=== PATIENT | male | born 1980 | race Caucasian/White ===

== ENCOUNTER → 2021-04-04 | Outpatient (CLI) | payer SELFPAY ==
--- NOTE | 2021-04-04 11:38 | Diagnostic Imaging Report ---
INDICATION: Right forearm pain. TIME OF EXAM: 10:27 a.m. TECHNIQUE: Three views of the right forearm were obtained. FINDINGS: Alignment at the wrist and elbow appears normal. Radius and ulna are intact. There appears to be an enthesophyte at the olecranon. IMPRESSION: No acute bony abnormality is detected. Dictated by: Dictated on workstation # [id number]
== END ==
LOC: RAD FS 10:17
PROVIDERS: ATTEND Nurse Practitioner
DX: M79.601 Pain in right arm (principal)
CPT/HCPCS: 73090

== ENCOUNTER 2022-08-27 00:02 | Emergency (ER) | payer SELFPAY ==
[~2022-08-27] VITALS: Ht 185 cm; Wt 90.7 kg
[2022-08-27 00:11] VITALS: BP 127/85
--- NOTE | 2022-08-27 01:18 | ED General ---
General Stated Complaint: ANXIETY Source of Information: Patient History of Present Illness Date Seen by Provider: Aug 27, 2022 Time Seen by Provider: 00:50 Physical Exam Vital Signs Capillary Refill : Height, Weight, BMI Height: '" Weight: lbs. oz. kg; BMI Method: Progress/Results/Core Measures Suspected Sepsis SIRS Temperature: Pulse: Respiratory Rate: Blood Pressure / Mean: Results/Orders Vital Signs/I&O Capillary Refill : Departure Impression Primary Impression: Left against medical advice Disposition: 07 AGAINST MEDICAL ADVICE Condition: Against Medical Advice Departure-Patient Inst. Referrals: [facility] (PCP/Family) Primary Care Physician NICOLA ZAMORANO DO Aug 27, 2022 01:18
== END 2022-08-27 00:55 | disposition left against medical advice (07) ==
LOC: EDUNIT# 00:02 → ER 00:05
DX: F41.9 Anxiety disorder, unspecified (principal)
CPT/HCPCS: 99281

== ENCOUNTER 2023-02-22 07:00 | Emergency (ER) | payer SELFPAY ==
[~2023-02-22] VITALS: Ht 188 cm; Wt 115.0 kg
[2023-02-22 07:57] LABS: BASOPHILS # (AUTO) 0.1 10^3/uL (0.0-0.1); BASOPHILS % (AUTO) 1 % (0-10); EOSINOPHILS # (AUTO) 0.1 10^3/uL (0.0-0.3); EOSINOPHILS % (AUTO) 2 % (0-10); HEMATOCRIT 47 % (40-54); HEMOGLOBIN 15.2 g/dL (13.3-17.7); LYMPHOCYTES # (AUTO) 1.7 10^3/uL (1.0-4.0); LYMPHOCYTES % (AUTO) 28 % (12-44); MEAN CORPUSCULAR HEMOGLOBIN 28 pg (25-34); MEAN CORPUSCULAR HGB CONC 33 g/dL (32-36); MEAN CORPUSCULAR VOLUME 87 fL (80-99); MEAN PLATELET VOLUME 10.4 fL (9.0-12.2); MONOCYTES # (AUTO) 0.5 10^3/uL (0.0-1.0); MONOCYTES % (AUTO) 8 % (0-12); NEUTROPHILS # (AUTO) 3.6 10^3/uL (1.8-7.8); NEUTROPHILS % (AUTO) 61 % (42-75); PLATELET COUNT 334 10^3/uL (130-400); WHITE BLOOD COUNT 5.9 10^3/uL (4.3-11.0)
[2023-02-22 08:05] LABS: ALBUMIN 3.8 GM/DL (3.2-4.5); CHLORIDE 105 MMOL/L (98-107); POTASSIUM 3.7 MMOL/L (3.6-5.0); SODIUM 139 MMOL/L (135-145)
[2023-02-22 08:06] LABS: CALCIUM 9.1 MG/DL (8.5-10.1)
[2023-02-22 08:08] LABS: GLUCOSE 95 MG/DL (70-105); TOTAL PROTEIN 7.1 GM/DL (6.4-8.2)
[2023-02-22 08:09] LABS: BILIRUBIN,TOTAL 0.4 MG/DL (0.1-1.0); CARBON DIOXIDE 27 MMOL/L (21-32)
[2023-02-22 08:11] LABS: ALKALINE PHOSPHATASE 55 U/L (40-136); CREATININE SERUM 0.81 MG/DL (0.60-1.30); GFR ESTIMATED 111
[2023-02-22 08:12] LABS: BUN/CREATININE RATIO 9
[2023-02-22 08:14] LABS: ALANINE AMINOTRANSFERASE 16 U/L (0-55); MAGNESIUM 2.3 MG/DL (1.6-2.4)
[2023-02-22 08:31] LABS: ERYTHROCYTE SEDIMENTATION RATE 2 MM/HR (0-15)
[2023-02-22 08:34] LABS: TSH (THYROID ANALYZER) 1.46 UIU/ML (0.35-4.94)
[2023-02-22 08:49] LABS: AMPHETAMINE SCREEN, URINE POSITIVE (NEGATIVE); BARBITURATE SCREEN URINE NEGATIVE (NEGATIVE); CANNABINOID SCREEN, URINE POSITIVE (NEGATIVE); COCAINE SCREEN URINE NEGATIVE (NEGATIVE); METHADONE STAT NEGATIVE (NEGATIVE); OPIATE SCREEN URINE NEGATIVE (NEGATIVE); OXYCODONE STAT NEGATIVE (NEGATIVE); TRICYCLIC ANTIDEPRESSANTS SCRE NEGATIVE (NEGATIVE)
--- NOTE | 2023-02-22 09:24 | Diagnostic Imaging Report ---
PROCEDURE: CT head and CT cervical spine without contrast. TECHNIQUE: Multiple contiguous axial images were obtained through the brain and cervical spine without the use of intravenous contrast. Sagittal and coronal reformations through the cervical spine were then performed. Auto Exposure Controls were utilized during the CT exam to meet ALARA standards for radiation dose reduction. INDICATION: Left-sided weakness. Hearing loss. Disequilibrium. COMPARISON: None FINDINGS: CT head: Ventricles and cortical sulci are normal in size and contour. There is no midline shift or mass-effect. No acute intra-axial hemorrhage is seen. There are no abnormal areas of increased or decreased density to suggest acute hemorrhage or edema. No extra-axial masses or collections are present. The bony calvarium is intact. The visualized paranasal sinuses shows mild scattered mucosal thickening. The mastoid air cells show near-complete opacification on the right. Minimal mastoid effusion is also noted on the left. CT cervical spine: Static alignment of the cervical spine is maintained. There is no significant anteroretrolisthesis. There is no evidence of jumped facets. Vertebral body heights are maintained. There is no acute fracture. No bony fragments are seen within the spinal canal. There is no significant osseous spinal canal stenosis. Pre and paravertebral soft tissue structures are unremarkable. Included portions of the lung apices are clear. Moderate bilateral molar dental caries are noted. IMPRESSION: 1. No acute intracranial abnormality. No CT evidence of mass, acute infarct or intracranial hemorrhage. 2. No acute fracture or dislocation of the cervical spine. 3. Bilateral mastoid effusions, right greater than left. In the correct clinical setting, findings can be seen as a sequela of mastoiditis. Dictated by: Dictated on workstation # [id number]
--- NOTE | 2023-02-22 09:34 | ED General ---
General Chief Complaint: Ear Problems Stated Complaint: VERTIGO,ANXIETY,CAN'T HEAR OUT OF BOTH EARS Nursing Triage Note: PT STATES HE HASN'T BEEN ABLE TO HEAR OUT OF RT EAR FOR A MONTH, LT EAR IS NOT WORKING WELL EITHER, HAS BEEN TO THE DR A FEW TIMES AND GIVEN DROPS, NOT WORKING, HAS ANXIETY AND THIS MAKES IT WORSE, VISION PROBLEMS AT NIGHT, VERY TIRED AND HAS SLEPT MORE THAN NORMAL Source of Information: Patient Exam Limitations: No Limitations History of Present Illness Date Seen by Provider: Feb 22, 2023 Time Seen by Provider: 07:15 Initial Comments This 42-year-old man presents to the emergency room by private vehicle with concerns about a constellation of unusual symptoms that for started in December. He reports nearly complete hearing loss in the right ear and significant hearing loss in the left ear. He reports vision change in the left eye including cloudy vision and fragmentation of imaging. He states this is worst at night. He sometimes sees multiple images of the same object. For example, when looking at the levi at night, he will see 6 images of the median with his left eye. Right eye appears normal. These vision changes only occur with the left eye. He does not have diplopia with binocular vision. He also reports disequilibrium. He is no longer able to read out of the left eye. He has subtle weakness of the left upper extremity and left leg. 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 He complains of a general sensation of tendons and muscles tightening up. He sometimes feels like his left leg is going to give out. He often feels clumsy. 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 He has prior medical history depression and anxiety. He takes propranolol, hydroxyzine, Lexapro, and Abilify. He sees Keely Rivera at [facility]. Psychosocial factors include increased stress recently. He has had some legal problems relating to real estate and his ex-girlfriend. He also admits to marijuana use but denies any other alcohol or drug use. He has been to the outpatient clinic twice and was prescribed Flonase. This has not seemed to help. He denies any significant pain such as headache or earache. He has not yet been to an eye doctor for this problem but has been to [facility] in the past. After urine drug screen, patient later admitted to intermittent methamphetamine use. Allergies and Home Medications Allergies Coded Allergies: No Allergy Information Available (Unverified , 02/22/23) Patient Home Medication List Home Medication List Reviewed: Yes Doxycycline Hyclate (Doxycycline Hyclate) 100 Mg Tablet, 100 MG PO BID Prescribed by: KENTON FERMIN on 02/22/231715 Prednisone (Prednisone) 20 Mg Tab, 40 MG PO DAILY Prescribed by: KENTON FERMIN on 02/22/231715 Review of Systems Review of Systems Constitutional: no symptoms reported EENTM: see HPI Respiratory: no symptoms reported Cardiovascular: no symptoms reported Gastrointestinal: no symptoms reported Genitourinary: no symptoms reported Musculoskeletal: see HPI Skin: no symptoms reported Psychiatric/Neurological: See HPI Hematologic/Lymphatic: No Symptoms Reported Immunological/Allergic: no symptoms reported Past Ljmvuhf-Cvxhiv-Zztwau Hx Patient Social History Tobacco Use?: No Substance use?: Yes Substance type: Marijuana Alcohol Use?: No Immunizations Up To Date First/Initial COVID19 Vaccinat: unk Second COVID19 Vaccination Fahad: YES Past Medical History Surgery/Hospitalization HX: ANXIETY, DEPRESSION Surgeries: No Respiratory: No Cardiac: No Neurological: No Genitourinary: No Gastrointestinal: No Musculoskeletal: No Endocrine: No Cancer: No Psychosocial: Yes ADD/ADHD, Anxiety, Depression Integumentary: No Physical Exam Vital Signs Vital Signs - First Documented 02/22/23 07:09 Temp 36.3 Pulse 55 Resp 18 B/P (MAP) 117/77 (90) Pulse Ox 98 O2 Delivery Room Air Capillary Refill : Height, Weight, BMI Height: '" Weight: lbs. oz. kg; 32.00 BMI Method: General Appearance: WD/WN, Anxious (tearful) HEENT: PERRL/EOMI, Normal ENT Inspection, Pharynx Normal, TM Abnormal (L) (Narrow canal. Greenish effusion layered inferriorly along the inferior TM. ), TM Abnormal (R) (Narrowed canal. TM slightly cloudy. Otherwise unremarkable), Other (left lens appears cloudy with greatly decreased red reflex. Mild light sensitivity noted. No inflammatory changes. Pupilary reflex intact. ) Neck: Normal Inspection Respiratory: Lungs Clear, Normal Breath Sounds, No Accessory Muscle Use Cardiovascular: Regular Rate, Rhythm, No Edema, No Murmur Gastrointestinal: Normal Bowel Sounds, Non Tender, Soft Extremity: Normal Inspection, No Pedal Edema Neurologic/Psychiatric: Alert, Oriented x3, Normal Mood/Affect, medical observer II-XII Norm as Tested, Motor Weakness (slight weakness detected in LUE vicn LLE. Poolroom Table Attendant slightly weaker on left. ), Other (Normal gait. Normal finger to nose and heel to bradley. ) Skin: Normal Color, Warm/Dry Progress/Results/Core Measures Suspected Sepsis SIRS Temperature: Pulse: 55 Respiratory Rate: 18 Laboratory Tests 02/22/23 07:50: White Blood Count 5.9 Blood Pressure 117 /77 Mean: 90 Laboratory Tests 02/22/23 07:50: Creatinine 0.81, Platelet Count 334, Total Bilirubin 0.4 Results/Orders Lab Results Laboratory Tests Test 02/22/23 07:50 02/22/23 08:21 02/22/23 17:05 Range/Units White Blood Count 5.9 4.3-11.0 10^3/uL Red Blood Count 5.39 4.30-5.52 10^6/uL Hemoglobin 15.2 13.3-17.7 g/dL Hematocrit 47 40-54 % Mean Corpuscular Volume 87 80-99 fL Mean Corpuscular Hemoglobin 28 25-34 pg Mean Corpuscular Hemoglobin Concent 33 32-36 g/dL Red Cell Distribution Width 13.3 10.0-14.5 % Platelet Count 334 130-400 10^3/uL Mean Platelet Volume 10.4 9.0-12.2 fL Immature Granulocyte % (Auto) 1 % Neutrophils (%) (Auto) 61 42-75 % Lymphocytes (%) (Auto) 28 12-44 % Monocytes (%) (Auto) 8 0-12 % Eosinophils (%) (Auto) 2 0-10 % Basophils (%) (Auto) 1 0-10 % Neutrophils # (Auto) 3.6 1.8-7.8 10^3/uL Lymphocytes # (Auto) 1.7 1.0-4.0 10^3/uL Monocytes # (Auto) 0.5 0.0-1.0 10^3/uL Eosinophils # (Auto) 0.1 0.0-0.3 10^3/uL Basophils # (Auto) 0.1 0.0-0.1 10^3/uL Immature Granulocyte # (Auto) 0.0 0.0-0.1 10^3/uL Erythrocyte Sedimentation Rate 2 0-15 MM/HR Sodium Level 139 135-145 MMOL/L Potassium Level 3.7 3.6-5.0 MMOL/L Chloride Level 105 98-107 MMOL/L Carbon Dioxide Level 27 21-32 MMOL/L Anion Gap 7 5-14 MMOL/L Blood Urea Nitrogen 7 7-18 MG/DL Creatinine 0.81 0.60-1.30 MG/DL Estimat Glomerular Filtration Rate 111 BUN/Creatinine Ratio 9 Glucose Level 95 70-105 MG/DL Calcium Level 9.1 8.5-10.1 MG/DL Corrected Calcium 9.3 8.5-10.1 MG/DL Magnesium Level 2.3 1.6-2.4 MG/DL Total Bilirubin 0.4 0.1-1.0 MG/DL Aspartate Amino Transf (AST/SGOT) 18 5-34 U/L Alanine Aminotransferase (ALT/SGPT) 16 0-55 U/L Alkaline Phosphatase 55 40-136 U/L C-Reactive Protein High Sensitivity 0.21 0.00-0.50 MG/DL Total Protein 7.1 6.4-8.2 GM/DL Albumin 3.8 3.2-4.5 GM/DL TSH [place]verse Testing 1.46 0.35-4.94 UIU/ML Serum Alcohol < 10 <10 MG/DL Syphilis Serology Non-Reactive Non-Reactive Urine Opiates Screen NEGATIVE NEGATIVE Urine Oxycodone Screen NEGATIVE NEGATIVE Urine Methadone Screen NEGATIVE NEGATIVE Urine Barbiturates Screen NEGATIVE NEGATIVE Ur Tricyclic Antidepressants Screen NEGATIVE NEGATIVE Urine Phencyclidine Screen NEGATIVE NEGATIVE Urine Amphetamines Screen POSITIVE H NEGATIVE Urine Methamphetamines Screen POSITIVE H NEGATIVE Urine Benzodiazepines Screen NEGATIVE NEGATIVE Urine Cocaine Screen NEGATIVE NEGATIVE Urine Cannabinoids Screen POSITIVE H NEGATIVE HIV (1&2) Ag and Ab Screen Referral Non-Reactive Non-Reactive My Orders Orders - KENTON WILEY MD Ed Iv/Invasive Line Start (02/22/23 07:40) Alcohol (02/22/23 07:40) Cbc And Automated Diff (02/22/23 07:40) Comprehensive Metabolic Panel (02/22/23 07:40) Hs C Reactive Protein (02/22/23 07:40) Drug Screen Stat (Urine) (02/22/23 07:40) Magnesium (02/22/23 07:40) Thyroid Analyzer (02/22/23 07:40) Erythrocyte Sedimentation Rate (02/22/23 07:40) Ct Head/Cervical Spine Wo (02/22/23 08:49) Ct Angio Head/Neck (02/22/23 09:34) Iohexol Injection (Omnipaque 350 Mg/Ml 1 (02/22/23 10:15) Received Contrast (Hold Metformin- Contr (02/22/23 10:15) Ns (Ivpb) 100 Ml (Sodium Chloride 0.9% 1 (02/22/23 10:15) Mri Brain W/O Contrast (02/22/23 12:51) Mri Cervical Spine W/O Contras (02/22/23 12:54) Lorazepam Injection (Lorazepam Injection (02/22/23 13:30) Syphilis Antibody Screen (02/22/23 15:50) Tick Panel With Lyme Eia (02/22/23 16:35) Hiv 1/2 Antibody (02/22/23 16:35) Medications Given in ED Vital Signs/I&O 02/22/23 02/22/23 07:09 17:28 Temp 36.3 36.3 Pulse 55 73 Resp 18 18 B/P (MAP) 117/77 (90) 130/86 Pulse Ox 98 98 O2 Delivery Room Air Room Air Capillary Refill : Blood Pressure Mean: 90 Diagnostic Imaging Diagonstic Imaging: CT Plain Films/CT/US/NM/MRI: c-spine, head Comments NAME: JAIRO RODRIGUEZ [facility] REC#: [id number] PT STATUS: REG ER : 1980 PHYSICIAN: KENTON WILEY MD ADMIT DATE: 02/22/23/ER Signed Date of Exam:02/22/23 CT HEAD/CERVICAL SPINE WO PROCEDURE: CT head and CT cervical spine without contrast. TECHNIQUE: Multiple contiguous axial images were obtained through the brain and cervical spine without the use of intravenous contrast. Sagittal and coronal reformations through the cervical spine were then performed. Auto Exposure Controls were utilized during the CT exam to meet ALARA standards for radiation dose reduction. INDICATION: Left-sided weakness. Hearing loss. Disequilibrium. COMPARISON: None FINDINGS: CT head: Ventricles and cortical sulci are normal in size and contour. There is no midline shift or mass-effect. No acute intra-axial hemorrhage is seen. There are no abnormal areas of increased or decreased density to suggest acute hemorrhage or edema. No extra-axial masses or collections are present. The bony calvarium is intact. The visualized paranasal sinuses shows mild scattered mucosal thickening. The mastoid air cells show near-complete opacification on the right. Minimal mastoid effusion is also noted on the left. CT cervical spine: Static alignment of the cervical spine is maintained. There is no significant anteroretrolisthesis. There is no evidence of jumped facets. Vertebral body heights are maintained. There is no acute fracture. No bony fragments are seen within the spinal canal. There is no significant osseous spinal canal stenosis. Pre and paravertebral soft tissue structures are unremarkable. Included portions of the lung apices are clear. Moderate bilateral molar dental caries are noted. IMPRESSION: 1. No acute intracranial abnormality. No CT evidence of mass, acute infarct or intracranial hemorrhage. 2. No acute fracture or dislocation of the cervical spine. 3. Bilateral mastoid effusions, right greater than left. In the correct clinical setting, findings can be seen as a sequela of mastoiditis. Dictated by: Dictated on workstation # [id number] Dict: 02/22/23 0916 Trans: 02/22/231645 [facility] [id number] Interpreted by: LESTER NOBLE MD Electronically signed by: LESTER NOBLE MD 02/22/23 1646 Diagonstic Imaging: CT Plain Films/CT/US/NM/MRI: other (angiogram head and neck) Comments NAME: JAIRO RODRIGUEZ [facility] REC#: [id number] PT STATUS: REG ER : 1980 PHYSICIAN: KENTON WILEY MD ADMIT DATE: 02/22/23/ER Signed Date of Exam:02/22/23 CT ANGIO HEAD/NECK PROCEDURE: CT angiography of the head and CT angiography of the neck with and without contrast. TECHNIQUE: Contiguous noncontrast images were obtained from the skull base through the vertex. After intravenous contrast administration, helical CT angiography of the neck was performed. Source data was reformatted into 3D MIP projections. Delayed post contrast acquisition was also obtained. Auto Exposure Controls were utilized during the CT exam to meet ALARA standards for radiation dose reduction. INDICATION: Left-sided weakness. Disequilibrium. Hearing loss. COMPARISON: CT head performed the same date. FINDINGS: CTA Neck: The visualized portions of the aortic arch demonstrate no evidence of aneurysm or dissection. There is conventional branching pattern of the great vessels of the aorta. The brachiocephalic artery is normal in course and caliber. The right and left common carotid origins are unremarkable. The origin of the left subclavian artery is patent. The common carotid arteries and internal carotid arteries demonstrate a normal course. No stenosis or dissection in the carotid systems. The external carotid arteries are patent and unremarkable. The left vertebral artery is dominant. The origin of the right vertebral artery is seen and is unremarkable. The origin of the left vertebral artery is seen and is unremarkable. There is no focal stenosis seen within the neck. There is no dissection. The vertebral arteries are well visualized to up to the level of the basilar artery. The osseous structures of the cervical spine are unremarkable. Included views through the lung apices demonstrate no focal consolidation. CTA brain: No stenosis or aneurysm in the intracranial portion of the bilateral ICA. No stenosis is seen in the bilateral anterior, middle, and posterior cerebral arteries. No evidence of aneurysm the [place]. In the posterior circulation, both of the vertebral arteries demonstrate normal opacification. Both the right and left PICA arteries are identified. The basilar artery is normal in course and caliber. The terminal branch vessels including the superior cerebellar arteries unremarkable. IMPRESSION: 1. No stenosis or aneurysm in the [place]. No large vessel occlusion. 2. No stenosis or dissection the bilateral carotid and vertebral arteries. Dictated by: Dictated on workstation # [id number] Dict: 02/22/23 1053 Trans: 02/22/23 1107 [id number] Interpreted by: NII JACKSON DO Electronically signed by: NII JACKSON DO 02/22/23 1107 Diagonstic Imaging: MRI Plain Films/CT/US/NM/MRI: head Comments NAME: JAIRO RODRIGUEZ [facility] REC#: [id number] PT STATUS: REG ER : 1980 PHYSICIAN: KENTON WILEY MD ADMIT DATE: 02/22/23/ER Signed Date of Exam:02/22/23 MRI BRAIN W/O CONTRAST PROCEDURE: MR imaging of the brain without contrast. TECHNIQUE: Multiplanar, multisequence MR imaging of the brain was performed without contrast. INDICATION: Left-sided weakness. Left vision changes. Hearing loss. COMPARISON: CTA head and neck of 02/22/2023. FINDINGS: Minimal nonspecific T2 hyperintensities in the supratentorial white matter are age appropriate. No other abnormal intracranial signal. No restricted water diffusion. No hemosiderin deposition or evidence of intracranial hemorrhage. Normal morphology including the major midline structures, sella, posterior fossa and cerebellopontine angle. Normal intracranial flow voids. No hydrocephalus or extra-axial fluid collections. The orbits are unremarkable. Mild mucosal thickening in the floor of the maxillary sinuses. Large right and small left mastoid effusion. Normal bone marrow signal. Multiple foci of restricted water diffusion in the parotid glands, the largest on the right measures up to 0.9 cm. IMPRESSION: 1. No acute intracranial MRI findings. No evidence of acute infarction or hemorrhage. 2. Bilateral mastoid effusions, greater on the right. These are nonspecific. There is no associated osteitis or coalescence on the comparison CT exams. 3. Mild mucosal thickening in the floor of the maxillary sinuses is stable. 4. Multiple foci of restricted water diffusion in the bilateral parotid glands, right greater than left. This is most likely a benign process. The morphology of these lesions on the comparison CTA exam is most consistent with lymph nodes. Recommend nonemergent follow-up with dedicated facial MRI without and with IV contrast. Dictated by: Dictated on workstation # [id number] Dict: 02/22/23 1409 Trans: 02/22/23 1647 [id number] Interpreted by: ERIBERTO MEREDITH MD Electronically signed by: ERIBERTO MEREDITH MD 02/22/23 1647 Diagonstic Imaging: MRI Plain Films/CT/US/NM/MRI: c-spine Comments NAME: JAIRO RODRIGUEZ [facility] REC#: [id number] PT STATUS: REG ER : 1980 PHYSICIAN: KENTON WILEY MD ADMIT DATE: 02/22/23/ER Signed Date of Exam:02/22/23 MRI CERVICAL SPINE W/O CONTRAS PROCEDURE: MR imaging cervical spine without contrast. TECHNIQUE: Multiplanar, multisequence MR imaging of the cervical spine was performed without contrast. INDICATION: Left-sided weakness. Hearing loss. Left vision changes. COMPARISON: None. FINDINGS: Normal alignment. Vertebral body heights are preserved. Normal bone marrow signal. No abnormal signal in the cervical spinal cord. Visualized paravertebral soft tissues are unremarkable. C2-C3: Normal. C3-C4: Uncovertebral joint hypertrophy results in severe right and moderate left neural foraminal narrowing. No spinal canal narrowing. C4-C5: Uncovertebral joint hypertrophy results in moderate right and mild left neural foraminal narrowing. No spinal canal narrowing. C5-C6: Uncovertebral and facet arthropathy result in eyhwfzgn-uc-[id number] right and moderate left neural foraminal narrowing. No spinal canal narrowing. C6-C7: No spinal canal narrowing. Uncovertebral and facet arthropathy result in moderate left neural foraminal narrowing. C7-T1: No spinal canal or neural foraminal narrowing. IMPRESSION: 1. No acute MRI findings in the cervical spine. 2. No abnormal signal in the cervical spinal cord. 3. 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 No high-grade spinal canal stenosis. Dictated by: Dictated on workstation # [id number] Dict: 02/22/23 1425 Trans: 02/22/23 1647 [id number] Interpreted by: ERIBERTO MEREDITH MD Electronically signed by: ERIBERTO MEREDITH MD 02/22/23 1647 Departure Impression Primary Impression: Left-sided weakness Additional Impressions: Hearing loss Qualified Codes: H91.93 - Unspecified hearing loss, bilateral Left otitis media Qualified Codes: H66.42 - Suppurative otitis media, unspecified, left ear Mastoid disorder Qualified Codes: H74.93 - Unspecified disorder of middle ear and mastoid, bilateral Vision loss, left eye Disequilibrium Disposition: 01 HOME, SELF-CARE Condition: Stable Departure-Patient Inst. Decision time for Depature: 17:08 Referrals: AMARA GIRON MD [facility] (PCP/Family) Primary Care Physician KENA SALCIDO OD Patient Instructions: Ear Infection ED, Hearing Loss in Adults Add. Discharge Instructions: Complete the doxycycline antibiotic as prescribed. Establish with a primary care provider soon as possible. Please call tomorrow morning to schedule the appointment. Be sure you inform the [employer] indian policy specialist that this is for an ER follow-up and you need to be reviewing pending studies promptly. The pending lab tests should result by early next week. You need to review these with a primary care provider. Prednisone steroids as prescribed. Take them early in the day to avoid sleep disturbance and with food or milk to avoid stomach upset. Drink plenty of clear liquids to stay well-hydrated. Follow-up with Dr. Salciod at 10:00 tomorrow, February 23. Be prepared to wait if needed as they are working you in to other appointments. You may follow-up with Dr. Giron (clinical data research) for your loss of hearing and other head and neck problems. His contact information is below. It would be beneficial for you to explore the financial assistance program through [facility]. Please inquire about this at discharge. Do not use any illicit substances such as marijuana, methamphetamines, etc. as this could complicate or convoluted the workup of your health issues. Return to the ER if you are having any worsening symptoms despite following these instructions. All discharge instructions reviewed with patient and/or family. Voiced understanding. Scripts Doxycycline Hyclate (Doxycycline Hyclate) 100 Mg Tablet 100 MG PO BID, #28 TAB 0 Refills Prov: KENTON WILEY MD 02/22/23 Prednisone (Prednisone) 20 Mg Tab 40 MG PO DAILY, #8 TAB 0 Refills Prov: KENTON WILEY MD 02/22/23 Work/School Note: Work Release Form Date Seen in the Emergency Department: Feb 22, 2023 Return to Work: Feb 24, 2023 Other Restrictions Listed Below: Restrictions may follow from specialty appointments. KENTON WILEY MD Feb 22, 2023 09:34
[2023-02-22] MEDS ORDERED: NS 100 ML (IVPB) BAG IV ONE (10:15)
[2023-02-22] MEDS ORDERED: IOHEXOL 350 MG/ML 100 ML (OMNIPAQUE 350) VIAL IV ONE (10:15)
[2023-02-22] MEDS ORDERED: HOLD METFORMIN - RECEIVED CONTRAST 20 ML VIAL IV SCH (10:15)
--- NOTE | 2023-02-22 11:06 | Diagnostic Imaging Report ---
PROCEDURE: CT angiography of the head and CT angiography of the neck with and without contrast. TECHNIQUE: Contiguous noncontrast images were obtained from the skull base through the vertex. After intravenous contrast administration, helical CT angiography of the neck was performed. Source data was reformatted into 3D MIP projections. Delayed post contrast acquisition was also obtained. Auto Exposure Controls were utilized during the CT exam to meet ALARA standards for radiation dose reduction. INDICATION: Left-sided weakness. Disequilibrium. Hearing loss. COMPARISON: CT head performed the same date. FINDINGS: CTA Neck: The visualized portions of the aortic arch demonstrate no evidence of aneurysm or dissection. There is conventional branching pattern of the great vessels of the aorta. The brachiocephalic artery is normal in course and caliber. The right and left common carotid origins are unremarkable. The origin of the left subclavian artery is patent. The common carotid arteries and internal carotid arteries demonstrate a normal course. No stenosis or dissection in the carotid systems. The external carotid arteries are patent and unremarkable. The left vertebral artery is dominant. The origin of the right vertebral artery is seen and is unremarkable. The origin of the left vertebral artery is seen and is unremarkable. There is no focal stenosis seen within the neck. There is no dissection. The vertebral arteries are well visualized to up to the level of the basilar artery. The osseous structures of the cervical spine are unremarkable. Included views through the lung apices demonstrate no focal consolidation. CTA brain: No stenosis or aneurysm in the intracranial portion of the bilateral ICA. No stenosis is seen in the bilateral anterior, middle, and posterior cerebral arteries. No evidence of aneurysm the [place]. In the posterior circulation, both of the vertebral arteries demonstrate normal opacification. Both the right and left PICA arteries are identified. The basilar artery is normal in course and caliber. The terminal branch vessels including the superior cerebellar arteries unremarkable. IMPRESSION: 1. No stenosis or aneurysm in the [place]. No large vessel occlusion. 2. No stenosis or dissection the bilateral carotid and vertebral arteries. Dictated by: Dictated on workstation # [id number]
--- NOTE | 2023-02-22 14:23 | Diagnostic Imaging Report ---
PROCEDURE: MR imaging of the brain without contrast. TECHNIQUE: Multiplanar, multisequence MR imaging of the brain was performed without contrast. INDICATION: Left-sided weakness. Left vision changes. Hearing loss. COMPARISON: CTA head and neck of 02/22/2023. FINDINGS: Minimal nonspecific T2 hyperintensities in the supratentorial white matter are age appropriate. No other abnormal intracranial signal. No restricted water diffusion. No hemosiderin deposition or evidence of intracranial hemorrhage. Normal morphology including the major midline structures, sella, posterior fossa and cerebellopontine angle. Normal intracranial flow voids. No hydrocephalus or extra-axial fluid collections. The orbits are unremarkable. Mild mucosal thickening in the floor of the maxillary sinuses. Large right and small left mastoid effusion. Normal bone marrow signal. Multiple foci of restricted water diffusion in the parotid glands, the largest on the right measures up to 0.9 cm. IMPRESSION: 1. No acute intracranial MRI findings. No evidence of acute infarction or hemorrhage. 2. Bilateral mastoid effusions, greater on the right. These are nonspecific. There is no associated osteitis or coalescence on the comparison CT exams. 3. Mild mucosal thickening in the floor of the maxillary sinuses is stable. 4. Multiple foci of restricted water diffusion in the bilateral parotid glands, right greater than left. This is most likely a benign process. The morphology of these lesions on the comparison CTA exam is most consistent with lymph nodes. Recommend nonemergent follow-up with dedicated facial MRI without and with IV contrast. Dictated by: Dictated on workstation # [id number]
--- NOTE | 2023-02-22 14:32 | Diagnostic Imaging Report ---
PROCEDURE: MR imaging cervical spine without contrast. TECHNIQUE: Multiplanar, multisequence MR imaging of the cervical spine was performed without contrast. INDICATION: Left-sided weakness. Hearing loss. Left vision changes. COMPARISON: None. FINDINGS: Normal alignment. Vertebral body heights are preserved. Normal bone marrow signal. No abnormal signal in the cervical spinal cord. Visualized paravertebral soft tissues are unremarkable. C2-C3: Normal. C3-C4: Uncovertebral joint hypertrophy results in severe right and moderate left neural foraminal narrowing. No spinal canal narrowing. C4-C5: Uncovertebral joint hypertrophy results in moderate right and mild left neural foraminal narrowing. No spinal canal narrowing. C5-C6: Uncovertebral and facet arthropathy result in [id number] right and moderate left neural foraminal narrowing. No spinal canal narrowing. C6-C7: No spinal canal narrowing. Uncovertebral and facet arthropathy result in moderate left neural foraminal narrowing. C7-T1: No spinal canal or neural foraminal narrowing. IMPRESSION: 1. No acute MRI findings in the cervical spine. 2. No abnormal signal in the cervical spinal cord. 3. 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 No high-grade spinal canal stenosis. Dictated by: Dictated on workstation # [id number]
[2023-02-22] MEDS ORDERED: PRD20T PO (17:16)
[2023-02-22] MEDS ORDERED: DOXY100T2 PO (17:16)
[2023-02-22 17:28] VITALS: BP 130/86
== END 2023-02-22 17:28 | disposition home or self-care (01) ==
LOC: EDUNIT# 07:00 → ER 07:02
DX: H66.92 Otitis media, unspecified, left ear (principal); E87.8 Other disorders of electrolyte and fluid balance, not elsewhere classified; H54.7 Unspecified visual loss; H74.93 Unspecified disorder of middle ear and mastoid, bilateral; R53.1 Weakness
CPT/HCPCS: 70450; 70496; 70498; 70551; 72125; 72141; 80053; 80306; 83735; 84443; 85025; 85652; 86141; 86618; 86666 ×2; 86668; 86757 ×2; 86780; 87389; 99284; G0480; 36415; 80320